=== PATIENT | male | born 2005 | race Caucasian/White ===

== ENCOUNTER 2025-07-26 20:43 | Emergency (ER) | payer OTHER, SELFPAY ==
[2025-07-26 20:53] VITALS: BP 145/92; PULSE 101; TEMP 36.9; O2SAT 100; BMI 21.3
--- NOTE | 2025-07-26 21:00 | US_ITS ---
[address] [address] Patient Name: CONNER WICK MRN: [id number] date: 2005 Sex: M Assigned Patient Location: ER Current Patient Location: ER Accession/Order Number: [id number] Exam Date: 07/26/2025 21:26 Report Date: 07/26/2025 22:19 At the request of: MUNA NUNN DO Procedure: US scrotum Scrotal ultrasound INDICATION: Left scrotal pain 24 hours status post coitus COMPARISON: None FINDINGS: Right testicle 4.7 x 2.2 x 3.2 cm. Homogeneous echotexture is suggested. Left testicle 4.8 x 2.2 x 3.2 cm homogeneous in echotexture. Normal color and venous Doppler vascular flow to both testicles. Small bilateral hydroceles. Small bilateral varicoceles. US/US scrotum IMPRESSION: Negative for testicular torsion or suspicious testicular mass lesion. Bilateral hydroceles and bilateral varicoceles. Impression dictated by: Gallo Field M.D. 07/26/2025 10:19 PM Dictation Location: [place] [address] Electronically authenticated by: [id number] Y Date: 07/26/2025 22:19
--- NOTE | 2025-07-26 21:23 | ED.GENADUL1 ---
HPI HPI - General Adult General Chief complaint: Urogenital-Male Stated complaint: TESTICULAR TORTION POSSIBLY?? Time Seen by Provider: 07/26/25 20:48 Source: patient Mode of arrival: walk-in Limitations: no limitations History of Present Illness HPI narrative: Patient is a 19-year-old male, no significant past medical history, presenting to the emergency department for evaluation of left testicular pain. Patient states he was having sexual intercourse with his girlfriend last night, 24 hours prior to arrival. He states that when his girlfriend came down to hard , he sustained blunt force to the left testicle. He felt immediate pain in the testicle that has progressively worsened over the last 24 hours. He states he feels nauseous as well. He denies any difficulty with urination or hematuria. No vomiting. No chest pain or shortness of breath. No prior surgeries to the genitourinary region. Related Data Home Medications ?Medication ?Instructions ?Recorded ?Confirmed No Known Home Medications 07/26/25 07/26/25 Allergies Allergy/AdvReac Type Severity Reaction Status Date / Time No Known Drug Allergies Allergy Verified 07/26/25 20:52 Opioid HPI Opioid Management Most Recent Opioid Data: Last Pain Scale 6 Today, 22:31 Last ED Pain Assessment Today, 22:31 Last MAR Pain Assessment Today, 21:52 Review of Systems ROS Status of ROS 10 or more systems reviewed and unremarkable except as noted in history and below PFSH PFSH Social History Little interest or pleasure in doing things: not at all Feeling down, depressed, or hopeless: not at all Exam Narrative Exam Narrative: CONSTITUTIONAL: Patient appears uncomfortable and in acute pain, answering questions and following commands appropriately SKIN: Was warm and dry. EYES: Sclerae white. EARS, NOSE, THROAT: Moist oral mucosa. RESPIRATORY: Clear to auscultation bilaterally, no wheezes, crackles, or stridor, no use of accessory muscles CARDIOVASCULAR: Normal rate and regular rhythm. There is no S3, S4, murmur, rub. GASTROINTESTINAL: Abdomen is soft, nontender, and nondistended. No inguinal hernias or inguinal lymphadenopathy. GENITOURINARY: The left testicle is high riding with an abnormal lie. There is tenderness to palpation throughout the left testicle/scrotum. The scrotum does not appear to be significantly edematous. Intact cremasterics reflex bilaterally. The penis is normal without tenderness or deformities. No ulcerations or lesions on the penis or bilateral testicles. No urtheral discharge or blood at the meatus. MUSCULOSKELETAL: No peripheral edema. NEUROLOGIC: Patient is awake and alert. Facies were symmetrical. Constitutional Vital Signs, click to edit/add: Last Vital Signs Temp 98.4 F 07/26/25 20:53 Pulse 60 07/26/25 21:51 Resp 19 07/26/25 21:51 BP 115/62 07/26/25 21:51 Pulse Ox 100 07/26/25 21:51 O2 Del Method Room Air 07/26/25 20:53 Course Vital Signs Vital signs: Vital Signs Temperature 98.4 F 07/26/25 20:53 Pulse Rate 101 H 07/26/25 20:53 Respiratory Rate 19 07/26/25 20:53 Blood Pressure 145/92 H 07/26/25 20:53 Pulse Oximetry 100 07/26/25 20:53 Oxygen Delivery Method Room Air 07/26/25 20:53 Temperature 98.4 F 07/26/25 20:53 Pulse Rate 60 07/26/25 21:51 Respiratory Rate 19 07/26/25 21:51 Blood Pressure 115/62 07/26/25 21:51 Pulse Oximetry 100 07/26/25 21:51 Oxygen Delivery Method Room Air 07/26/25 20:53 Medical Decision Making MDM Narrative Medical decision making narrative: Patient is a 19-year-old male presenting to the emergency department 24-hour history of progressively worsening left testicular pain after sexual intercourse. His vital signs on arrival are significant for mild tachycardia, likely related to his acute pain. Genitourinary examination as noted above. Differential diagnose includes, but not limited to, testicular torsion, testicular rupture, testicular hematoma, epididymitis, hematocele, scrotal wall injury/contusion, or other acute injuries. Scrotal US and UA were obtained. He was given oral Zofran and Broadus for pain. UA was negative for hematuria or infection. Scrotal ultrasound independently reviewed and interpreted by myself and radiology demonstrated no evidence of testicular torsion, suspicious masses, or any other acute pathology. On reevaluation, patient states he feels significantly improved. He was able to urinate normally. He is walking around the emergency department with no issue. His presentation is likely secondary to testicular contusion. I believe he is stable for discharge and outpatient follow-up with his PCP in the next 3 to 5 days should his symptoms persist. Return precautions were given including any new or concerning symptoms. Patient understands and agrees to the plan. FINAL IMPRESSION: #Acute left testicular contusion DISPOSITION: Discharged home CONDITION: Good Lab Data Lab results reviewed: Yes I reviewed the patient's lab results Labs: Lab Results 07/26/25 Range/Units 22:23 Urine Color Lt. yellow (YELLOW) Urine Clarity Clear (CLEAR) Urine pH 7.5 (5.0-9.0) Ur Specific [place] 1.010 (1.005-1.025) Urine Protein Negative (NEG/TRACE) mg/dL Urine Glucose (UA) Negative (NEGATIVE) mg/dL Urine Ketones Negative (NEGATIVE) mg/dL Urine Occult Blood Negative (NEGATIVE) Urine Nitrite Negative (NEGATIVE) Urine Bilirubin Negative (NEGATIVE) Urine Urobilinogen 0.2 (0.2-1.0) EU/dL Ur Leukocyte Esterase Negative (NEGATIVE) Imaging Data Scrotal US: Attestation: I personally reviewed and interpreted this imaging study as follows: Radiologist's impression: ITS Impressions Scrotum Ultrasound 07/26/25 21:00 IMPRESSION: Negative for testicular torsion or suspicious testicular mass lesion. Bilateral hydroceles and bilateral varicoceles. Impression dictated by: Gallo Field M.D. 07/26/2025 10:19 PM Dictation Location: [place] [address] Electronically authenticated by: [id number] Y Date: 07/26/2025 22:19 Discharge Plan Discharge Chief Complaint: Urogenital-Male Clinical Impression: Testicle tenderness Patient Disposition: Home, Self-Care Time of Disposition Decision: 22:32 Condition: Good Mode of Transportation: Private Vehicle Prescriptions / Home Meds: No Action No Known Home Medications Print Language: Sinhala Instructions: Testicle Pain (ED) Referrals: SKYLA BARRIENTOS MD [Primary Care Provider, Family Practice] - 1 week
[2025-07-26 21:51] VITALS: BP 115/62; PULSE 60; O2SAT 100
[2025-07-26] MEDS: HYDROCODONE/ACET 5-325 MG TABLET 1 TAB PO (21:52)
[2025-07-26] MEDS: ONDANSETRON 4 MG RAPDIS TABLET SL (21:52)
[2025-07-26 22:30] LABS: Glucose Urine UA NEGATIVE (NEGATIVE)
--- OUTSIDE RECORDS SUMMARY | 2025-07-26 22:33 | XMS_ITS | Clinical Summary ---
Author Organization [facility] Address [address], [address] [place] [address] Care Team Providers Care Msws Name Role Phone Dat Bella MD Primary Care Provider [phone] Allergies No known active allergies Medications No known medications Social History Tobacco UseTypesPacks/DayYears UsedDateSmoking Tobacco: NeverPassive Smoke Exposure: YesSmokeless Tobacco: Never Tobacco Cessation:Counseling Given: Not Answered Alcohol UseStandard Drinks/WeekCommentsNo0 (1 standard drink = 0.6 oz pure alcohol)Sex and Gender InformationValueDate RecordedSex Assigned at BirthNot on fileLegal FdhVtqe1310/10/2012 9:43 PM ESTGender IdentityNot on fileSexual OrientationNot on file Last Filed Vital Signs Vital SignReadingTime TakenCommentsBlood Begqaouv380/59010/27/2022 1:41 PM EST Erlhy4235/27/2023 1:41 PM LTCAfenqtabmgq72.8 ??C (98.3 ??F)10/27/2022 1:41 PM ESTRespiratory Xske062510/27/2022 1:41 PM ESTOxygen Zmjoucllgd99%10/27/2022 1:41 PM ESTInhaled Oxygen Concentration--Abpgxf49.6 kg (160 lb)10/27/2022 1:41 PM EST Iwrpby540.3 cm (5' 9 )10/27/2022 1:41 PM ESTBody Mass Index23.63010/27/2022 1:41 PM EST Plan of Treatment Health MaintenanceDue DateLast DoneCommentsDTaP/Tdap/Td vaccine (5 - Tdap) , 11/05/2006, 02/07/2005, Additional history exists Depression Ehhenf0908/06/2016HIV tegdyh6108/06/2019HPV vaccine (1 - Male 3-dose series)2019Hepatitis C qfwbvg4708/06/2022Meningococcal B vaccine (2 of 2 - Trumenba SCDM 2-dose series)/Flu vaccine (#1)03/31/2025OVID- 19 Vaccine (1 - season)2025Hepatitis B yftckzwMbpjobesv84/08/2007, 01/10/2005, 2004Hib pphvaohJamtroywd85/08/2007, 02/07/2005, 01/10/2005 Measles,Mumps,Rubella (MMR) gpubasgKqlwhkjqgynd43/16/2009, 11/05/2006 Pneumococcal 0-49 years VaccineAged Out03/15/2009, 11/05/2006, 02/07/2005, Additional history existsNo longer eligible based on patient's age to complete this topicPolio knvmgcwIzusqwaca05/16/2009, 11/05/2006, 02/07/2005, Additional history existsVaricella vcsgjubFkhmhviru03/16/2009, 11/05/2006Hepatitis A fiyyfwuMaokgygtd10/21/2010, 03/15/2009Meningococcal (ACWY) vaccineAged OutNo longer eligible based on patient's age to complete this topic Insurance * Guarantor: Tereza DAVIS TypeRelation to PatientDate of BirthPhone Billing AddressPersonal/XulwsiNkmoju43[birth year][address] [address] * Guarantor: Michael Valentin TypeRelation to PatientDate of BirthPhone Billing AddressThird [employer] Party AlhffkctwBlpy2005 [address] [address] * Guarantor: Tereza DAVIS TypeRelation to PatientDate of BirthPhone Billing AddressPersonal/TjtwxkEmroym[birth year][address] [address] Care Teams Team MemberRelationshipSpecialtyStart DateEnd Date Dat Bella MD [address] [place] [phone] PCP - GeneralPediatrics2
--- OUTSIDE RECORDS SUMMARY | 2025-07-26 22:33 | XMS_ITS | Clinical Summary ---
[facility] Organization [facility] Address [id number] [address] [place] [address] Care Team Providers Care Brand Planner Name Role Phone Unavailable Primary Care Provider Unavailabl e Medications No known medications Social History Tobacco UseTypesPacks/DayYears UsedDateSmoking Tobacco: Some DaysCigarettes Smokeless Tobacco: Never Tobacco Cessation:Ready to Q uit: Not Asked; Counseling Given: Not Answered Alcohol UseStandard Drinks/WeekCommentsNever0 (1 standard drink = 0.6 oz pure alcohol)ChildcareAnswerDate EuibfvmxZmksnbakuTtopkjb24/12/2019EmploymentAnswer Date DmsroewrJetiurzreoQjqfnye29/12/2019Hunger ScreeningAnswerDate Recorded Within the past 12 months we worried whether our food would run out before we got money to buy more.Never True10/19/2023Within the past 12 months the food we bought just didn't last and we didn't have money to get more.Never True 4Purpose - LifeAnswerDate RecordedPurpose and direction in lifeUnknown 10/11/2020ex and Gender InformationValueDate RecordedSex Assigned at BirthNot on fileLegal TktUuol1504/05/2015 12:10 PM EDTGender IdentityNot on fileSexual OrientationNot on file Last Filed Vital Signs Vital SignReadingTime TakenCommentsBlood Kgmvkdpr502/71010/19/2023 10:08 AM EST Xtrpb456010/19/2023 10:08 AM JDWYwuodtybwdv04.6 ??C (97.9 ??F)10/19/2023 10:08 AM ESTRespiratory Wizb816510/19/2023 10:08 AM ESTOxygen Iathdgftjl839%10/19/2023 10:08 AM ESTInhaled Oxygen Concentration--Jqcrpx84 kg (150 lb)10/19/2023 10:08 AM CDLEyrbbg727.7 cm (5' 8 )10/19/2023 10:08 AM ESTBody Mass Index22.81 10/19/2023 10:08 AM EST Plan of Treatment Health MaintenanceDue DateLast DoneCommentsDTaP,Tdap and Td Vaccines (5 - Tdap) , 11/05/2006, 02/07/2005, Additional history exists Depression Ovdoxywhx05/07/2016Tobacco Kmbzjahbs56/07/2016Adult BMI Screening Influenza Yzmdtlg42 Medical Devices Not on file Insurance
--- OUTSIDE RECORDS SUMMARY | 2025-07-26 22:33 | XMS_ITS | Clinical Summary ---
Author Organization [facility] Address [address] [place] [address] Care Team Providers Care Advertising Agent Name Role Phone Unallocated, Noms Provider MD Primary Care Provi rebeca Allergies No known active allergies Medications MedicationSigDispense QuantityRefillsLast FilledStart DateEnd DateStatus cyclobenzaprine (Flexeril) 10 MG tablet TAKE 0.5-1 TABS BY MOUTH EVERY 8 HRS NEEDED FOR MUSCLE SPASM/PAIN. MAY CAUSE DROWSINESS/FTMUGVTEW46/17/2024ctive methylPREDNISolone (Medrol Dospak) 4 MG tablets Indications:Strain of left shoulder, subsequent encounterFollow schedule on package instructions 21 tablet 01/05/2024ctive Family History RelationNameStatusCommentsFatherAliveMotherAliveSister 1AliveSister 2Alive Social History Tobacco UseTypesPacks/DayYears UsedDateSmoking Tobacco: Unknown Tobacco Cessation:Counseling Given: Not Answered Sex and Gender InformationValueDate RecordedSex Assigned at BirthNot on file Legal FgdYdny2511/12/2022 9:45 PM EDTGender IdentityNot on fileSexual Orientation Not on file Last Filed Vital Signs Vital SignReadingTime TakenCommentsBlood Eopovbrj999/68005/16/2019 12:00 PM EDT Pulse--Temperature--Respiratory Rate--Oxygen Saturation--Inhaled Oxygen Concentration--Xrpuya37.1 kg (128 lb)05/16/2019 12:00 PM ZPJHguioc636.6 cm (5' 6 )05/16/2019 12:00 PM EDTBody Mass Index20.66005/16/2019 12:00 PM EDT Plan of Treatment Health MaintenanceDue DateLast DoneCommentsCOVID-19 Vaccine (2024- season) 2025Influenza Vaccine (#1)Pneumococcal Vaccine: Pediatrics (0 to 5 Years) and At-Risk Patients (6 to 64 Years)Aged OutNo longer eligible based on patient's age to complete this topic Insurance Care Teams Team MemberRelationshipSpecialtyStart DateEnd Date Unallocated, Noms Adria, [address] [facility] [place] [place] [address] [facility]10/21/23
[2025-07-26 22:39] LABS: Cast Seen? NONE SEEN #/LPF (NONE SEEN); Crystals Seen? None Seen #/HPF (None Seen); Urine Culture Indicated NO
--- NOTE | 2025-07-26 22:42 | PC.NURSE ---
i gave this patient verbal and paper discharge orders and this patient voices yes to understanding these. at time of discharge this patient voices no concerns, needs and shows no signs of distress
== END 2025-07-26 22:41 | disposition home or self-care (01) ==
PROVIDERS: Emergency Provider Student in an Organized Health Care Education/Training Program; PCP Pediatrics
DX: N50.812 Left testicular pain (principal)
CPT/HCPCS: 76870; 81001; 99284; Q0162